=== PATIENT | female | born 1965 | race Caucasian/White ===

== ENCOUNTER 2019-02-10 10:29 | Emergency (ER) | payer BC, SELFPAY ==
[2019-02-10 10:31] VITALS: BP 164/83; PULSE 98; RESP 18; TEMP 38.4; O2SAT 98; BMI 23.1
--- NOTE | 2019-02-10 10:47 | ED.DCSUM_ITS ---
History of Present Illness Chief Complaint: Fever Informant: Patient, Family Onset: Weeks Current Severity: Moderate Narrative: She is here with the family complaining of body aches and a fever for about a week. 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 no specific diagnosis in the children. For about 1 week she has had intermittent to persistent fevers and body aches, slight sore throat no cough no chest or abdominal pain no exposures. She is able to eat and drink. Bowel and bladder habits unremarkable. This morning the family noted to her left scapular area that was a 10 cm circular area of red rash and central to thi s area was it appears to be an insect type bite she was not bitten by any insects or any ticks however her home area is infested with ticks but she has not been exposed to any ticks that she knows of for sure she denies any past history she has a temperature of 101 and her chief complaint right now is just the body aches Past Medical History - Allergies and Home Meds Allergies/Adverse Reactions: Allergies codeine Adverse Reaction (Intermediate, Verified 02/10/19 10:33) Vomiting Primary Care Physician: Juany Malhotra MD [STAFF PHYSICIAN] - Past Medical History: - - She has a meniscus tear to the left knee and she is scheduled for surgery to repair that Smoking Status: Heavy Smoker (>10/day) - Family History Maternal Family History: Reports: No pertinent history Review of Systems General: Reports: Fever, Malaise, Sweats. Denies: Chills Eyes: Denies: Visual changes - bilaterally, Diplopia ENT: Denies: Rhinorrhea, Sore throat Cardiovascular: Denies: Chest pain, Palpitations Respiratory: Denies: Dyspnea, Cough, Dyspnea on exertion Gastrointestinal: Denies: Abdominal pain, Nausea, Vomiting, Diarrhea, Melena, Hematochezia Genitourinary: Denies: Dysuria, Hematuria, Frequency Musculoskeletal: Denies: Back pain, Extremity Pain Skin: Reports: Rash, - - The left parascapular area. Denies: Wounds Neurological: Denies: Headache, Weakness, Numbness Physical Exam Vital Signs/Narrative: Vital Signs Temp Pulse Resp BP Pulse Ox 02/10/19 10:31 101.2 F H 98 18 164/83 H 98 General: Well nourished, Well developed, No Acute Distress Head: Normocephalic, Atraumatic Eyes: Perrl, EOMI ENT: Moist mucous membranes, No rhinorrhea, - - Her throat is minimally red strep throat swab obtained Neck: Supple, Nontender Cardiovascular: Regular rate, Regular rhythm, No murmurs Respiratory: No distress, CTA bilaterally, Chest nontender Abdomen: Soft, Nontender, Nondistended, Normal bowel sounds Back: Nontender, Normal Inspection Extremities: Nontender, No edema Skin: Normal color, - - There is about a 10 cm diameter circular rash to the left parascapular area this is slightly raised it is minimally tender there is no fluctuance or crepitance, directly central to this area is what appears to be a slight insect might bark punctuation, the rest of her skin is unremarkable Neurological: Alert, Oriented x3, Cranial nerves II-XII grossly intact, Normal Strength, Normal Sensation Psychological: Normal affect, Normal Mood Diagnostic/Tx/Re-eval - Medical Decision Making Differentials rather extensive she was exposed to children who are ill, she has this red raised rash to the left parascapular area etiology is unclear at this time screening labs are obtained IV fluids UA urine culture, blood cultures, Lyme titer screen Patient is feeling much better after therapy as above, the patient's screening labs are generally unremarkable except her UA shows 5-10 white cells with some leukocyte esterase she is having no UTI symptoms, discussed with her and her along differential the concept of the rash they are in a tick infested area and there is high tick prevalence in the community per the local health department given the above urine culture was sent as his blood culture will start her on Augmentin which should provide her therapy for UTI and/or tick related disease, I explained her that the urine culture and Lyme titers are not available today should help her family physicians for those results and for further management options and return for change in symptoms, she is feeling better she wants to go home and she will return for change in symptoms Home stable Final impression Febrile illness, urinary tract infection, left parascapular rash possible tick exposure ED Disposition - Plan for ED Patient: Diagnosis: UTI (urinary tract infection), Tick bite Instructions: PYELONEPHRITIS, Female (Adult) Prescriptions: Amox/Clavulanate Tablet [Augmentin Tablet] 891 mg PO Q12H #20 tab Prescription Printed Referrals: Juany Malhotra MD [STAFF PHYSICIAN] - Additional Instructions: Follow-up with your outpatient providers in a few days for results of urine culture and Lyme disease blood tests continue antibiotics and return for change in symptoms
[2019-02-10 11:13] LABS: Lyme Ab Screen Interpretation REF LAB
[2019-02-10] MEDS: 0.9% Normal Saline 1,000 ML 1000 ML IV (11:15)
[2019-02-10] MEDS: Acetaminophen 500 MG Tablet 1000 MG PO (11:15)
--- NOTE | 2019-02-10 11:15 | ED.RN ---
this rn assumes care
[2019-02-10] MEDS: Ondansetron 4 MG/2 ML Vial IV (11:17)
[2019-02-10] MEDS: Morphine 4 MG/ML Syringe IV (11:18)
[2019-02-10 11:27] VITALS: BP 137/68; PULSE 88; RESP 18; RESP 20; TEMP 38.3; O2SAT 98; BMI 20.5
[2019-02-10 11:27] LABS: Absolute Lymphocyte Count 0.49 X10^3/ul (0.83-4.51); Absolute Neutrophil Count 3.6 X10^3/uL (2.0-7.7); Basophil# 0.01 X10^3/uL; Basophil% 0.2 % (0-1); Eosinophil# 0.01 X10^3/uL; Eosinophils% 0.2 % (0-5); Hematocrit 37.1 % (37-47); Hemoglobin 12.8 g/dl (12.0-15.0); Lymphocyte # 0.49 X10^3/ul (4.0); Lymphocyte % 11.3 % (19-41); Mean Corp Hgb Conc 34.5 g/gl (32-36); Mean Corpuscular Hgb 28.8 pg (27.0-32.0); Mean Corpuscular Volume 83.4 fL (81-99); Mean Platelet Vol. 10.2 fl (6.2-12.0); Monocyte# 0.22 X10^3/uL; Monocyte% 5.1 % (0-10); Neutrophil # 3.61 X10^3/uL (2.7-7.7); Neutrophil % 83.2 % (47-70); Platelet Count 135 K/mm3 (150-450); RBC Distribution Width CV 12.6 % (11.6-14.6); RBC Distribution Width SD 38.7 fl (35.1-43.9); Red Blood Count 4.45 M/mm3 (4.2-5.4); White Blood Count 4.3 K/mm3 (4.4-11.0)
[2019-02-10 11:28] LABS: Differential Indicated SCAN CRITERIA MET; POSITIVE COUNT NO; POSITIVE DIFFERENTIAL YES; POSITIVE MORPHOLOGY NO
[2019-02-10 11:40] LABS: AST(SGOT) 46 U/L (15-37); Alanine Aminotransfer ALT/SGPT 66 U/L (13-56); Albumin, Serum 3.4 g/dL (3.2-5.0); Alkaline Phosphatase 131 U/L (45-117); Anion Gap 6 (5-15); BUN 13 mg/dL (7-18); BUN/Creat Ratio 19.3 RATIO (10-20); Bilirubin, Direct 0.33 mg/dL (0.00-0.30); Calcium,Total 8.7 mg/dL (8.5-10.1); Chloride 108 mmol/L (98-107); Creatinine, Serum 0.67 mg/dL (0.55-1.02); EST Glomerular Filtration Rate 97 mL/min (>60); Est Glom Filt Rate - Afr Amer 118 mL/min (>60); Estimated Creatinine Clearance 94.95 ml/min; Globulin 3.7 g/dL (2.2-4.2); Glucose 97 mg/dL (74-106); Lipase 53 U/L (73-393); Potassium 3.5 mmol/L (3.5-5.1); Protein, Total 7.1 g/dL (6.4-8.2); Sodium Level 138 mmol/L (136-145)
[2019-02-10 12:04] VITALS: BP 130/62; PULSE 84; RESP 18; TEMP 37.6; O2SAT 97; O2SAT 98
--- NOTE | 2019-02-10 12:05 | RAD_ITS ---
STUDY: X-RAY CHEST REASON FOR EXAM: Female, 53 years old. Fever, rash, body aches, tick bite TECHNIQUE: Frontal and lateral views of the chest. COMPARISON: None. FINDINGS: The lungs are clear and expanded. There is no demonstrated pleural abnormality. Normal size heart. Normal mediastinum and parisa. Normal visualized pulmonary arteries. Normal visualized aortic arch and descending thoracic aorta. Normal visualized thoracic spine. Normal visualized ribs, clavicles, and shoulders. There is no demonstrated abnormality of the visualized soft tissue structures of the upper abdomen. RAD/Chest PA and Lateral IMPRESSION: Normal x-ray examination of the chest. Electronically Signed: Giuseppe Donato MD at 12:19 EDT Tel , Service support ,
[2019-02-10] MEDS: 0.9% Normal Saline 1,000 ML 999 ML IV (12:06)
[2019-02-10 13:08] LABS: Color, Urine Yellow (Yellow); Glucose, Dipstick Normal (Normal); Ketone-Dipstick 50 mg/dl (Negative); Leukocyte Esterase-Dipstick 500 /ul (Negative); Nitrite-Dipstick Negative (Negative); Occult Blood-Urine 10 /ul (Negative); Protein-Dipstick 15 mg/dl (Negative); Urine Bilirubin Dipstick Negative (Negative); Urine Clarity Sl. Cloudy (Clear); Urine Urobilinogen 4 mg/dl (Normal)
[2019-02-10 13:23] LABS: Bacteria RARE /hpf (None Seen); Red Blood Cells-Urine 0-5 SEEN /hpf (0-5); Squamous Epithelial Cells - UA 0-5 SEEN /hpf (5-10); White Blood Cells 5-10 SEEN /hpf (0-5)
[2019-02-10] MEDS: Amox/Clavulanate 875 MG Tablet PO (14:46)
[2019-02-10 14:48] VITALS: BP 124/66; PULSE 73; RESP 15; O2SAT 99
[2019-02-19 17:18] LABS: Lyme Scn Total Ab w/Rflx 1.57 ISR (0.00-0.90)
[2019-02-19 17:19] LABS: Lyme IgG P18 Ab Present Abnormal; Lyme IgG P23 Ab Absent; Lyme IgG P28 Ab Absent; Lyme IgG P30 Ab Absent; Lyme IgG P39 Ab Absent; Lyme IgG P41 Ab Absent; Lyme IgG P45 Ab Absent; Lyme IgG P58 Ab Absent; Lyme IgG P66 Ab Absent; Lyme IgG P93 Ab Absent
[2019-02-19 17:21] LABS: Lyme IgM P41 Ab Present Abnormal
[2019-02-19 17:22] LABS: Lyme IgM P23 Ab Present Abnormal; Lyme IgM P39 Ab Absent
== END 2019-02-10 14:48 | disposition home or self-care (01) ==
LOC: ED 11:11
PROVIDERS: Emergency Provider Emergency Medicine
DX: N39.0 Urinary tract infection, site not specified (principal); S40.262A Insect bite (nonvenomous) of left shoulder, initial encounter; W57.XXXA Bitten or stung by nonvenomous insect and other nonvenomous arthropods, initial encounter; Y93.9 Activity, unspecified; Y92.9 Unspecified place or not applicable; F17.200 Nicotine dependence, unspecified, uncomplicated
CPT/HCPCS: 71046; 80048; 80076; 81001; 83690; 85025; 86617; 86618; 87040; 87086; 87088; 87880; 96361; 96374; 96375; 99284; J7030; A4216; J2405